=== PATIENT | male | born 1990 | race Caucasian/White ===

== ENCOUNTER 2018-01-06 10:10 | Emergency (ER) | payer OTHER ==
[~2018-01-06] VITALS: Ht 177.8 cm; Wt 73.9 kg
[2018-01-06 11:32] LABS: BASOPHILS % (AUTO) 0.2 % (0.0-2.0); EOSINOPHILS # (AUTO) 0.1 K/uL (0.0-0.7); EOSINOPHILS % (AUTO) 0.9 % (0.0-7.0); HEMATOCRIT 45.1 % (36.7-47.1); HEMOGLOBIN 15.6 g/dL (12.5-16.3); LYMPHOCYTES # (AUTO) 1.7 K/uL (20.0-40.0); LYMPHOCYTES % (AUTO) 19.6 % (20.5-51.5); MEAN CORPUSCULAR HEMOGLOBIN 30.4 uug (23.8-33.4); MEAN CORPUSCULAR HGB CONC 35 g/dL (32.5-36.3); MEAN CORPUSCULAR VOLUME 87.9 fL (73.0-96.2); MONOCYTES # (AUTO) 0.5 K/uL (2.0-10.0); MONOCYTES % (AUTO) 5.3 % (0.0-11.0); NEUTROPHILS # (AUTO) 6.4 K/uL (1.8-8.9); PLATELET COUNT (AUTO) 241 K/uL (152-348); RED BLOOD CELL COUNT(AUTO) 5.13 MIL/uL (4.06-5.63); WHITE BLOOD COUNT (AUTO) 8.6 K/uL (3.6-10.2)
[2018-01-06 11:40] LABS: CREATININE 0.9 mg/dL (0.6-1.3); POTASSIUM 3.7 mmol/L (3.5-5.1)
[2018-01-06 11:46] LABS: BILIRUBIN,TOTAL 0.4 mg/dL (0.2-1.0); TOTAL PROTEIN, SERUM 8.2 g/dL (6.4-8.2)
--- NOTE | 2018-01-06 11:50 | NUR ---
PT back from CT, resting in bed. Denies pain, SOB.
[2018-01-06 12:55] VITALS: BP 121/70
--- NOTE | 2018-01-06 12:55 | NUR ---
Patient discharged to home in stable conditon. Written and verbal after care instructions given. Patient verbalizes understanding of instructions.
== END 2018-01-06 12:58 | disposition home or self-care (01) ==
LOC: ER 10:10
DX: J32.9 Chronic sinusitis, unspecified (principal); R53.1 Weakness; R42 Dizziness and giddiness
CPT/HCPCS: 36415; 70450; 71045; 85025; 87400; A4663

== ENCOUNTER 2018-08-31 13:26 | Emergency (ER) | payer OTHER ==
[~2018-08-31] VITALS: Ht 177.8 cm; Wt 73.9 kg
== END 2018-08-31 14:20 | disposition home or self-care (01) ==
LOC: ER 13:27
DX: A08.4 Viral intestinal infection, unspecified (principal)
CPT/HCPCS: A4663

== ENCOUNTER 2019-03-30 18:27 | Emergency (ER) | payer OTHER ==
[~2019-03-30] VITALS: Ht 175.3 cm; Wt 74.8 kg
--- NOTE | 2019-03-30 19:04 | NUR ---
PT IS IN ROOM #2B. DR ALVAREZ EVALUATED THE PT.
--- NOTE | 2019-03-30 19:09 | NUR ---
Patient discharged to home in stable conditon. Written and verbal after care instructions given. Patient verbalizes understanding of instructions. Patient ambulated with stable gait.
== END 2019-03-30 19:11 | disposition home or self-care (01) ==
LOC: ER 18:27
DX: F41.9 Anxiety disorder, unspecified (principal)
CPT/HCPCS: A4663

== ENCOUNTER 2019-10-28 13:55 | Emergency (ER) | payer OTHER ==
[~2019-10-28] VITALS: Ht 175.3 cm; Wt 75.7 kg
[2019-10-28 14:32] LABS: BASOPHILS % (AUTO) 0.6 % (0.0-2.0); EOSINOPHILS # (AUTO) 0.3 K/uL (0.0-0.7); EOSINOPHILS % (AUTO) 3.3 % (0.0-7.0); HEMATOCRIT 46.2 % (36.7-47.1); HEMOGLOBIN 15.7 g/dL (12.5-16.3); LYMPHOCYTES # (AUTO) 1.9 K/uL (20.0-40.0); LYMPHOCYTES % (AUTO) 24.4 % (20.5-51.5); MEAN CORPUSCULAR HEMOGLOBIN 30.7 uug (23.8-33.4); MEAN CORPUSCULAR HGB CONC 34 g/dL (32.5-36.3); MEAN CORPUSCULAR VOLUME 90.4 fL (73.0-96.2); MONOCYTES # (AUTO) 0.6 K/uL (2.0-10.0); MONOCYTES % (AUTO) 8.2 % (0.0-11.0); NEUTROPHILS # (AUTO) 4.9 K/uL (1.8-8.9); NEUTROPHILS % (AUTO) 63.5 % (38.5-71.5); PLATELET COUNT (AUTO) 223 K/uL (152-348); RED BLOOD CELL COUNT(AUTO) 5.12 MIL/uL (4.06-5.63); WHITE BLOOD COUNT (AUTO) 7.7 K/uL (3.6-10.2)
--- NOTE | 2019-10-28 14:52 | NUR ---
Patient discharged to home in stable conditon. Written and verbal after care instructions given. Patient verbalizes understanding of instructions. Patient ambulated with stable gait.
[2019-10-28 14:53] VITALS: BP 135/71
== END 2019-10-28 14:54 | disposition home or self-care (01) ==
LOC: ER 13:56
DX: Z01.83 Encounter for blood typing (principal); F41.9 Anxiety disorder, unspecified
CPT/HCPCS: 36415; 85025; 85610; A4663